=== PATIENT | male | born 2000 | race Caucasian/White ===

== ENCOUNTER → 2019-07-25 10:45 | Outpatient (CLI) | payer OTHER, SELFPAY ==
[2019-07-16 08:50] VITALS: BMI 23.2
--- NOTE | 2019-07-25 10:47 | ECHOD_ITS ---
Reason For Study: Mitral valve prolapse Procedure This was a 2D Doppler, Color Flow transthoracic echocardiogram. Exam performed in department. Left Ventricle Normal LV size. Left ventricular systolic function is normal. The estimated ejection fraction is 65 %. Normal diastology for age. No regional wall motion abnormalities noted. Right Ventricle Normal RV size. Normal systolic function. Atria Normal left atrium. Normal right atrium. Mitral Valve Normal mitral valve. No prolapse noted. Trivial eccentric mitral valve insufficiency. Tricuspid Valve Normal tricuspid valve. Aortic Valve Normal aortic valve. Trisinus/trileaflet aortic valve. Pulmonic Valve Normal pulmonic valve. Great Vessels Normal aortic root. The pulmonary artery is normal size. Normal inferior vena cava. Pericardium/Pleural No pericardial effusion. MMode/2D Measurements & Calculations LVIDd: 4.9 cm IVSd: 0.99 cm Ao root diam: 2.6 cm LVIDs: 3.1 cm LVPWd: 1.1 cm RVDd: 3.6 cm FS: 35.6 % LAV(MOD-bp): 43.9 ml EDV(MOD-sp4): 122.5 ml EDV(MOD-sp2): 118.0 ml LAV(MOD-bp) Indexed: 21.4 ml/m2 ESV(MOD-sp4): 49.6 ml EF(MOD-sp2): 56.7 % LAV(MOD-sp2): 41.7 ml EF(MOD-sp4): 59.5 % LAV(MOD-sp4): 42.0 ml SV(MOD-sp4): 72.9 ml SV(MOD-sp2): 66.9 ml LA A4 area: 16.0 cm2 LA dimension(2D): 3.3 cm RA A4 area: 14.8 cm2 Doppler Measurements & Calculations MV E max demetrio: 73.7 cm/sec Lat Peak E' Demetrio: 16.2 cm/sec Med Peak E' Demetrio: 13.2 cm/sec MV A max demetrio: 39.3 cm/sec E/E' lat: 4.5 E/E' med: 5.6 MV E/A: 1.9 Ao V2 max: 128.8 cm/sec LV V1 max: 112.2 cm/sec PA V2 max: 118.3 cm/sec Ao max P.6 mmHg LV V1 max P.0 mmHg TR max demetrio: 225.0 cm/sec TR max P.3 mmHg Interpretation Summary Normal LV size. Left ventricular systolic function is normal. The estimated ejection fraction is 65 %. Normal diastology for age. Normal mitral valve. No prolapse noted Trivial eccentric mitral valve insufficiency. Ordering Physician: Skyler Sifuentes Referring Physician: Skyler Sifuentes MD Performed By: Janie Del Angel PANTERA
== END ==
PROVIDERS: Family Provider Pediatrics; PCP Pediatrics; Referring Provider Internal Medicine Cardiovascular Disease; Visit Provider Internal Medicine Cardiovascular Disease
DX: R01.1 Cardiac murmur, unspecified (principal)
CPT/HCPCS: 93306